=== PATIENT | female | born 1985 | race Caucasian/White ===

== ENCOUNTER 2020-02-17 11:03 | Outpatient (REF) | payer MEDICAID, SELFPAY ==
[2020-02-17 11:32] LABS: COVID-19 Test Negative (Negative)
== END 2020-02-17 11:04 | disposition home or self-care (01) ==
LOC: HO.LAB 11:03
PROVIDERS: Visit Provider Internal Medicine
DX: Z20.828 Contact with and (suspected) exposure to other viral communicable diseases (principal)
CPT/HCPCS: 87635

== ENCOUNTER 2023-05-11 13:46 | Outpatient (REF) | payer MEDICAID, SELFPAY ==
[2023-05-11 16:30] LABS: Alanine Aminotransferase 14 U/L (0-31); Albumin Level 4.2 g/dL (3.5-5.0); Alkaline Phosphatase 100 U/L (39-117); Anion Gap 12 (12-20); Aspartate Amino Transferase 15 U/L (5-31); Bilirubin Total 0.5 mg/dL (0.0-1.0); Blood Urea Nitrogen 11 mg/dL (9-16); Calcium 9.3 mg/dL (8.4-10.2); Carbon Dioxide 27 mmol/L (22-29); Chloride 105 mmol/L (96-108); Estimated Glomerular Filt Rate > 60; Glucose Random 85 mg/dL (60-115); Potassium 3.8 mmol/L (3.3-5.1); Sodium 140 mmol/L (135-145); Total Protein 7.5 g/dL (6.5-8.0)
[2023-05-11 16:46] LABS: TSH reflex Free T4 2.21 uIU/mL (0.32-4.0)
== END 2023-05-11 13:47 | disposition home or self-care (01) ==
LOC: HO.HHCL 13:46
PROVIDERS: Visit Provider General Practice
DX: E03.8 Other specified hypothyroidism (principal)
CPT/HCPCS: 36415; 80053; 84443

== ENCOUNTER 2023-12-08 19:53 | Emergency (ER) | payer MEDICAID, SELFPAY ==
--- NOTE | ~2023-12-08 | XR_ITS ---
EXAMINATION: XR KNEE, LEFT CLINICAL INFORMATION: Pain, injury COMPARISON: None available. TECHNIQUE: Four views of the left knee. FINDINGS: No fracture or joint effusion. Alignment is anatomic. Joint spaces are maintained. No abnormal soft tissue calcification. XR/XR knee LT 3V IMPRESSION: Normal left knee.
--- NOTE | ~2023-12-08 | XR_ITS ---
EXAMINATION: XR HAND/WRIST, RIGHT CLINICAL INFORMATION: Conclusion injury COMPARISON: None TECHNIQUE: PA, lateral, and oblique views of the right hand and wrist. FINDINGS: The bones and soft tissues are normal. No fracture. Alignment is anatomic. Joint spaces are maintained. No erosions or soft tissue calcifications. XR/XR hand wrist RT IMPRESSION: Normal radiographs of the hand and wrist.
--- NOTE | ~2023-12-08 | XR_ITS ---
EXAMINATION: XR HAND/WRIST, LEFT CLINICAL INFORMATION: FOOSH injury COMPARISON: None TECHNIQUE: PA, lateral, and oblique views of the left hand and wrist. FINDINGS: The bones and soft tissues are normal. No fracture. Alignment is anatomic. Joint spaces are maintained. No erosions or soft tissue calcifications. XR/XR hand wrist LT IMPRESSION: Normal radiographs of the hand and wrist.
--- NOTE | ~2023-12-08 | XR_ITS ---
EXAMINATION: XR KNEE, RIGHT CLINICAL INFORMATION: Pain, injury COMPARISON: None available. TECHNIQUE: Four views of the right knee. FINDINGS: No acute fractures. Moderate joint effusion. Alignment is anatomic. Joint spaces are maintained. No abnormal soft tissue calcification. XR/XR knee RT 3V IMPRESSION: Moderate joint effusion.
[2023-12-08 20:12] VITALS: BP 134/84; PULSE 110; RESP 16; TEMP 36.8; O2SAT 98; BMI 30.2
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
== END 2023-12-09 00:11 | disposition left against medical advice (07) ==
PROVIDERS: Emergency Provider Emergency Medicine
DX: S60.512A Abrasion of left hand, initial encounter (principal); S60.511A Abrasion of right hand, initial encounter; S80.212A Abrasion, left knee, initial encounter; S80.211A Abrasion, right knee, initial encounter; V18.0XXA Pedal cycle driver injured in noncollision transport accident in nontraffic accident, initial encounter; M25.461 Effusion, right knee; Z53.21 Procedure and treatment not carried out due to patient leaving prior to being seen by health care provider; Y93.55 Activity, bike riding; Y92.410 Unspecified street and highway as the place of occurrence of the external cause; Y99.9 Unspecified external cause status
CPT/HCPCS: 73110; 73130; 73562; 99281

== ENCOUNTER 2024-01-06 14:03 | Emergency (ER) | payer MEDICAID, SELFPAY ==
[2024-01-06 14:13] VITALS: BP 121/81; PULSE 92; O2SAT 98
--- NOTE | 2024-01-06 15:10 | PC.NURSE ---
NO ANSWER [id number]
== END 2024-01-06 17:26 | disposition left against medical advice (07) ==
PROVIDERS: Emergency Provider Emergency Medicine
DX: M79.605 Pain in left leg (principal)

== ENCOUNTER 2024-01-21 23:25 | Emergency (ER) | payer MEDICAID, SELFPAY ==
[2024-01-21 23:32] VITALS: BP 118/77; PULSE 117; RESP 18; TEMP 36.8; O2SAT 96; BMI 30.6
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
[2024-01-22] MEDS: Lidocaine HCl 1 % MPF 5 ML VIAL INFILTRATI ×2 (01:56)
[2024-01-22 02:04] VITALS: BP 110/73; PULSE 86; RESP 16; TEMP 36.6; O2SAT 98
[2024-01-22 02:06] VITALS: BP 110/73; PULSE 86; RESP 16; TEMP 36.6; O2SAT 98
== END 2024-01-22 02:05 | disposition home or self-care (01) ==
PROVIDERS: Emergency Provider Internal Medicine
DX: S81.811A Laceration without foreign body, right lower leg, initial encounter (principal); M79.604 Pain in right leg; Y29.XXXA Contact with blunt object, undetermined intent, initial encounter; Y93.55 Activity, bike riding; Y92.488 Other paved roadways as the place of occurrence of the external cause; Y99.8 Other external cause status
CPT/HCPCS: 12001; 99284

== ENCOUNTER 2024-02-17 17:10 | Emergency (ER) | payer MEDICAID, SELFPAY ==
[2024-02-17 17:23] VITALS: BP 122/71; PULSE 102; RESP 18; TEMP 37.1; O2SAT 97; BMI 30.7
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
[2024-02-17] MEDS: Docusate Sodium 100 MG/10 ML LIQUID PO (21:38)
[2024-02-17] MEDS: Bacitracin Oint 0.9 GM PACKET 1 APPL TOPICAL (21:42)
[2024-02-17 21:47] VITALS: BP 124/70; PULSE 92; RESP 19; TEMP 36.9; O2SAT 97
[2024-02-17] MEDS: Ibuprofen 400 MG TABLET PO (22:11)
[2024-02-17] MEDS: Ketorolac Tromethamine 30 MG/ML VIAL IM (23:12)
[2024-02-18 00:27] VITALS: BP 119/66; PULSE 79; RESP 16; TEMP 36.7; O2SAT 99
[2024-02-18 00:34] VITALS: BP 119/66; PULSE 79; RESP 16; TEMP 36.7; O2SAT 99
== END 2024-02-18 00:37 | disposition home or self-care (01) ==
PROVIDERS: Emergency Provider Emergency Medicine
DX: H61.21 Impacted cerumen, right ear (principal); H92.01 Otalgia, right ear
CPT/HCPCS: 69209; 99283; 99284; J1885

== ENCOUNTER 2024-06-09 17:52 | Outpatient (REF) | payer MEDICAID, SELFPAY ==
--- OUTSIDE RECORDS SUMMARY | 2024-06-09 17:55 | XMS_ITS | Encounter Summary ---
Author Organization [employer] Address [address] [place] [address] Care Team Providers Care Project Management Professor Name Role Phone Tayler Byers MD Primary Care Provider [phone] Reason for Visit * Reason Comments Med Refill Encounter Details Date Type Department Care Team ([facility] st Contact Info) Description 05/15/2024 Refill [facility] [address] [place], [place] [phone] Tayler Byers MD [address] [place], [place] [phone] Social History Tobacco Use Types Packs/Day Years Used Date Smoking Tobacco: Never Smokeless Tobacco: Current Comments:vape Alcohol Use Standard Drinks/Week Comments Never 0 (1 standard drink = 0.6 oz pur e alcohol) Depression Answer Date Recorded Patient Health Questionnaire-9 Score 0 04/24/2024 Patient Health Questionnaire-9 Score 0 04/24/2024 Last PHQ-9: Questionnaire Data Not on file 1 06/25/2023 Housing Stability Answer Date Recorded What is your housing situation today? I have mason velasco 04/24/[address] you li ve. Do you have problems with any of the following? None of the above 04/24/2024 Food Insecurity Answer Date Recorded Within the past 12 months, y ou worried that your food would run out before you got money to buy more: Never True 04/24/2024 Within the past 12 months,th e food you bought just didn't last and you didn't have enough money to get more: Never True Transportation Answer Date Recorded In the past 12 months, has l ack of transportation kept you from medical appts, meetings, work or from getting things needed for daily living? No 04/24/2024 Utilities Answer Date Recorded In the past 12 months, has t he electric, gas, oil or water company threatened to shut off services in your home? No 04/24/2024 Depression Answer Date Recorded Patient Health Questionnaire-2 Score 0 04/24/2024 Internet Access Answer Date Recorded Internet Access Q1 Yes 04/24/2024 Internet Access Q2 Not on file 04/24/2024 Comments Unknown Sex and Gender Information Value Date Recorded Sex Assigned at Female 03/06/2022 10:34 AM EDT Legal Sex Female 10:34 AM EDT Gender Identity Female 03/06/2022 10:34 AM EDT Sexual Orientation Bisexual 03/06/2022 10 :34 AM EDT documented as of this encounter Plan of Treatment Not on file documented as of this encounter Visit Diagnoses Not on filedocumented in this encounter Additional Health Concerns Assessment Noted Time PHQ-9 Depression Total Score: 0 04/24/20 24 12:05 PM EST documented as of this encounter Care Teams Project Management Professor Relationship Specialty Start Date End Date Tayler Byers MD [address] [place] [address] PCP - General Family Medicine 03/19/20 documented as of this encounter
--- OUTSIDE RECORDS SUMMARY | 2024-06-09 17:55 | XMS_ITS | Encounter Summary ---
Author Organization [employer] [facility] Address [address] [place] [address] [address] [place] [address] Care Team Providers Care Printing Plate Clerk Name Role Phone Tayler Byers MD Primary Care Provider [phone] Encounter Details Date Type Department Care Team (Late st Contact Info) Description 03/22/2022 Abstract [facility] [address] [place] [address] Provider, MD Dagmar Social History Tobacco Use Types Packs/Day Years Used Date Smoking Tobacco: Never Assessed Comments Unknown Sex and Gender Information Value Date Recorded Sex Assigned at Female 03/06/2022 10:34 AM EDT Legal Sex Female 10:34 AM EDT Gender Identity Female 03/06/2022 10:34 AM EDT Sexual Orientation Bisexual 03/06/2022 10 :34 AM EDT documented as of this encounter Plan of Treatment Not on file documented as of this encounter Visit Diagnoses Not on filedocumented in this encounter Care Teams Printing Plate Clerk Relationship Specialty Start Date End Date Tayler Byers MD [address] [place] [address] PCP - General Family Medicine 03/19/20 documented as of this encounter
--- OUTSIDE RECORDS SUMMARY | 2024-06-09 17:55 | XMS_ITS | Encounter Summary ---
Author Organization [employer] Address [address] [place] [address] Care Team Providers Care Boat Cleaner Name Role Phone Tayler Byers MD Primary Care Provider Reason for Visit * Reason Comments Recovery Supports Encounter Details Date Type Department Care Team ([facility] st Contact Info) Description 05/20/2024 Patient Outreach [facility] [address] [place] [address] Ck Alaniz Recovery Supports Social History Tobacco Use Types Packs/Day Years [...] AM EDT documented as of this encounter Progress Notes * Ck Alaniz - 05/20/2024 1:25 PM EST I met with Liliam today. Setting: by phone Recovery Wellness Goals worked on: Personal/Professional Development (Education/Employment) and Social Stability Action taken/next steps: Enrolled in educational courses, Offered person centered recovery support, and Assisted with accessing benefits (insurance, SNAP, etc.) Additional comments: Liliam asked me if I could assist her with the application for financial assistance to pay for the recovery academy training. Ck Alaniz documented in this encounter Plan of Treatment Not on file documented as of this encounter Visit Diagnoses Not on filedocumented in this encounter Additional Health Concerns Assessment Noted Time PHQ-9 Depression Total Score: 0 04/24/20 24 12:05 PM EST documented as of this encounter Care Teams Boat Cleaner Relationship Specialty Start Date End Date Tayler Byers MD [address] [place] [id number] PCP - General Family Medicine 03/19/20 documented as of this encounter
--- OUTSIDE RECORDS SUMMARY | 2024-06-09 17:55 | XMS_ITS | Clinical Summary ---
Author Organization [employer] Address [address] [place] [address] Care Team Providers Care Service Line Layer Name Role Phone Tayler Byers MD Primary Care Provider [phone] Allergies No known active allergies Medications * This document contains information received from the source organization and may not represent a complete record from that organization. fluticasone (Flonase) 50 MCG/ACT nasal spray ADMINISTER 2 SPRAYS INTO EACH NOSTRIL ONCE PER DAY. SHAKE GENTLY. BEFORE FIRST USE, PRIME PUMP. AFTER USE, CLEAN TIP AND REPLACE CAP 48 mL 04/24/20 24 Active Ascorbic Acid (vitamin C) 250 MG tabletIndicatio ns:Acne vulgaris Take 1 tablet (250 mg) by mouth Once per day. 90 tablet 3 06/09/19 25 026 Active QUEtiapine (SEROquel) 100 MG tabletIndicatio ns:Bipolar I disorder (CMS/HCC) TAKE 1 TABLET BY MOUTH IN THE MORNING, AND TAKE 2 TABLETS BY MOUTH AT BEDTIME 270 tablet 3 06/09/19 25 Active lidocaine (Lidoderm) 5 % patchIndication s:Low back pain at multiple sites Apply 1 patch topically Once per day. Remove & discard patch within 12 hours or as directed by MD. 30 patch 2 06/09/19 25 026 Active cetirizine (ZyrTEC) 10 MG tabletIndicatio ns:Allergic rhinitis due to other allergic trigger, unspecified seasonality Take 1 tablet (10 mg) by mouth Once per day. 90 tablet 3 06/09/19 25 026 Active spironolactone (Aldactone) 100 MG tabletIndicatio ns:Acne vulgaris Take 1 tablet (100 mg) by mouth Once per day. 90 tablet 3 06/09/19 25 026 Active busPIRone (Buspar) 15 MG tabletIndicatio ns:Bipolar I disorder (CMS/HCC) Take 1 tablet (15 mg) by mouth every 8 (eight) hours. 270 tablet 3 06/09/19 25 Active ondansetron (Zofran) 4 MG tablet Take 1 tablet (4 mg) by mouth if needed each day for nausea or vomiting. 20 tablet 06/09/19 25 026 Active ibuprofen 400 MG tabletIndicatio ns:Low back pain at multiple sites Take 1 tablet (400 mg) by mouth every 6 (six) hours if needed for moderate pain or fever for up to 90 doses. 90 tablet 06/09/19 25 Active acetaminophen (Tylenol) 500 MG tabletIndicatio ns:Low back pain at multiple sites Take 1 tablet (500 mg) by mouth every 6 (six) hours if needed for moderate pain. 40 tablet 1 06/09/19 25 Active buPROPion (Wellbutrin) 75 MG tabletIndicatio ns:Bipolar I disorder (CMS/HCC) Take 1 tablet (75 mg) by mouth 2 times daily. 180 tablet 3 06/09/19 25 Active clindamycin (Clindagel) 1 % gelIndications: Acne vulgaris Apply topically Once per day. After washing face with noxema 60 g 2 06/09/19 25 026 Active lamoTRIgine (LaMICtal) 200 MG tabletIndicatio ns:Bipolar I disorder (CMS/HCC) Take 1 tablet (200 mg) by mouth in the morning. 90 tablet 3 06/09/19 25 Active tretinoin (Retin-A) 0.025 % creamIndication s:Acne vulgaris Apply topically at bedtime. 45 g 2 06/09/19 25 026 Active busPIRone (Buspar) 15 MG tablet Take 1 tablet (15 mg) by mouth every 8 (eight) hours. 270 tablet 3 05/11/19 24 025 Discontinued QUEtiapine (SEROquel) 100 MG tablet TAKE 1 TABLET BY MOUTH IN THE MORNING, AND TAKE 2 TABLETS BY MOUTH AT BEDTIME 270 tablet 3 05/11/19 24 025 Discontinued lamoTRIgine (LaMICtal) 200 MG tablet Take 1 tablet (200 mg) by mouth in the morning. 90 tablet 3 05/11/19 24 025 Discontinued buPROPion (Wellbutrin) 75 MG tablet Take 1 tablet (75 mg) by mouth 2 times daily. 180 tablet 3 05/11/19 24 025 Discontinued clindamycin (Clindagel) 1 % gel Apply topically in the morning. After washing face with noxema 60 g 2 06/06/19 24 025 Discontinued(R eorder (will not trigger notification to Pharmacy)) tretinoin (Retin-A) 0.025 % creamIndication s:Acne vulgaris Apply topically at bedtime. 45 g 2 06/29/19 025 Discontinued(R eorder (will not trigger notification to Pharmacy)) spironolactone (Aldactone) 100 MG tabletIndicatio ns:Acne vulgaris Take 1 tablet (100 mg) by mouth in the morning. 30 tablet 11 06/29/19 025 Discontinued(R eorder (will not trigger notification to Pharmacy)) ondansetron (Zofran) 4 MG tablet Take 1 tablet (4 mg) by mouth if needed each day for nausea or vomiting. 20 tablet 07/24/19 025 Discontinued(R eorder (will not trigger notification to Pharmacy)) ibuprofen 400 MG tablet Take 1 tablet (400 mg) by mouth every 6 (six) hours if needed for moderate pain or fever for up to 30 doses. 30 tablet 10/11/19 025 Discontinued(R eorder (will not trigger notification to Pharmacy)) lidocaine (Lidoderm) 5 % patch Apply 1 patch topically Once per day. Remove & discard patch within 12 hours or as directed by MD. 30 patch 2 10/11/19 025 Discontinued(R eorder (will not trigger notification to Pharmacy)) acetaminophen (Tylenol) 500 MG tablet Take 1 tablet (500 mg) by mouth every 6 (six) hours if needed for moderate pain. 40 tablet 1 10/11/19 025 Discontinued(R eorder (will not trigger notification to Pharmacy)) cetirizine (ZyrTEC) 10 MG tablet Take 1 tablet (10 mg) by mouth Once per day. 30 tablet 11 10/29/19 24 025 Discontinued(R eorder (will not trigger notification to Pharmacy)) silver sulfADIAZINE (Silvadene) 1 % cream Apply to affected area daily 20 g 12/10/19 24 025 Discontinued(T herapy completed) bacitracin-poly myxin b (Polysporin) ointment Apply topically 2 times daily. 15 g 12/10/19 24 025 Discontinued(T herapy completed) QUEtiapine (SEROquel) 100 MG tablet TAKE 1 TABLET BY MOUTH IN THE MORNING, AND TAKE 2 TABLETS BY MOUTH AT BEDTIME 270 tablet 3 05/15/19 25 025 Discontinued(R eorder (will not trigger notification to Pharmacy)) lamoTRIgine (LaMICtal) 200 MG tablet TAKE 1 TABLET BY MOUTH IN THE MORNING 90 tablet 3 05/15/19 25 025 Discontinued(R eorder (will not trigger notification to Pharmacy)) buPROPion (Wellbutrin) 75 MG tablet TAKE 1 TABLET BY MOUTH TWICE A DAY 180 tablet 3 05/19/19 25 025 Discontinued(R eorder (will not trigger notification to Pharmacy)) busPIRone (Buspar) 15 MG tablet TAKE 1 TABLET (15 MG) BY MOUTH EVERY 8 (EIGHT) HOURS. 270 tablet 3 05/19/19 25 025 Discontinued(R eorder (will not trigger notification to Pharmacy)) Active Problems Problem Noted Date Diagnosed Date Subclinical hypothyroidism 05/11/2023 Encounter for screening mamm ogram for malignant neoplasm of breast 05/11/2023 Low back pain at multiple sites 05/11/2023 Moderate anxiety 04/23/2023 Opioid use, unspecified, uncomplicated 3 Acne 03/22/2022 Assessment & Plan (06/06/2023 11:48 AM EST): Paradoxical worsening of acne with Anaid Continue Noxema wash, add clinda gel Will consult derm for consideration of Accutane Assessment & Plan (05/11/2023 1:55 PM EST): Trial Anaid, if this is not sufficient, consider accutane Bipolar I disorder 04/21/2020 Assessment & Plan (05/11/2023 1:56 PM EST): Stable on meds Cannabis abuse 04/21/2020 Mild depressive disorder 10/24/2011 Assessment & Plan (04/23/2023 9:50 AM EST): PROGRESS NOTE: ID: Liliam is a 38 y.o. White bisexual-identified cis-female (pronouns ) with previous documented hx of Depression self reported history of Anxiety who presents for Anxiety and Depression after been released from skilled nursing 1 week ago since 2008. Adjusting to the community. During IBH Consult Liliam presenting with changes in sleep difficulty falling asleep, trouble concentrating, thoughts of worthlessness or guilt, fatigue/loss of energy, excessive worry/anxiety, difficulty controlling worry, restless/keyed up/On edge, easily fatigued, sleep disturbance difficulty falling asleep, and diminished ability to relax, and Hx of opioid abuse, currently has been in treatment at skilled nursing since 2008, denies cravings, denies any other illicit drugs, will start services at [facility] for suboxone, in regard to Opioids; for a period of 18+ mo, for all symptoms in the context of recently released from skilled nursing recently, currently on parole and probation, needing anger management classes, provided with Kyle brochure for her to follow up and request information. PLAN: New/Additional Services needed Off-site services for , Behavioral Health Integration Plan External OP therapy referral and OP psychiatry Referral, Patient Self Plan Patient to utilize skills provided in intervention , Patient to reach out to [facility] team as needed, and Comply with medication prescribed by skilled nursing provider ( buspar 15mg, lamitical 20mg, seroquel 100mg and welbutrin 75mg). Encounters Date Type Department Care Team Description 06/09/2024 3:45 PM EST Procedure Visit [facility] [address] [place] [address] Tayler Byers MD Screening for cervical cancer (Primary Dx); Encounter for screening mammogram for malignant neoplasm of breast; Blurry vision, bilateral; Acne vulgaris; Dietary counseling; Exercise counseling; Class 1 obesity with body mass index (BMI) of 31.0 to 31.9 in adult, unspecified obesity type, unspecified whether serious comorbidity present; Bipolar I disorder ([facility]); Low back pain at multiple sites; Allergic rhinitis due to other allergic trigger, unspecified seasonality 06/09/2024 Refill [facility] [address] [place] [address] Tayler Byers MD Acne vulgaris 06/09/2024 Travel 05/30/2024 Patient Outreach [facility] [address] [facility] [place] [address] [facility] 05/20/2024 Patient Outreach [facility] [address] [facility] [place] [address] [facility] 05/19/2024 Patient Outreach [facility] [address] [facility] [address] [place] [address] [facility] 05/18/2024 Refill [facility] [address] [facility] [place] [address] Tayler Byers MD 05/15/2024 Refill [facility] [address] [facility] [address] [place] [address] Tayler Byers MD 05/08/2024 Telephone [facility] [address] [facility] [place] [address] Tayler Byers MD Medication Question 04/24/2024 11:45 AM EST Office Visit [facility] [address] [facility] [address] [place] [address] Kimberly Begum DO Decreased visual acuity (Primary Dx) 04/24/2024 Patient Outreach [facility] [address] [facility] [address] [place] [address] [facility] 04/24/2024 Refill [facility] [address] [facility] [place] [address] Tayler Byers MD 04/23/2024 Patient Outreach [facility] [address] [place] [address] [facility] 04/15/2024 Telephone [facility] [address] [place] [address] Tayler Byers MD Nurse Triage from Last 3 Months Immunizations Name Administration Dates Next Due Hep A, Adult 05/29/2022,02/25/2021 TD (adult), 2 Lf tetanus tox oid, preservative free, adsorbed 10/13/2017 Social History Tobacco Use Types Packs/Day Years Used Date Smoking Tobacco: Never Smokeless Tobacco: Current Tobacco Cessation:Ready to Q uit: Not Asked; Counseling Given: Not Answered Comments:vape Alcohol Use Standard Drinks/Week Comments Never 0 (1 standard drink = 0.6 oz pur e alcohol) Depression Answer Date Recorded Patient Health Questionnaire-9 Score 0 04/24/2024 Patient Health Questionnaire-9 Score 0 04/24/2024 Last PHQ-9: Questionnaire Data Not on file 1 06/25/2023 Housing Stability Answer Date Recorded What is your housing situation today? I have mason rod 04/24/[address] you li [...] Orientation Bisexual 03/06/2022 10 :34 AM EDT Last Filed Vital Signs Vital Sign Reading Time Taken Comments Blood Pressure 120/60 06/09/2024 4:02 PM EST Pulse 92 06/09/2024 4:02 PM EST Temperature 36.1 ??C (97 ??F) 06/09/2024 4:02 PM EST Respiratory Rate 18 06/09/2024 4:02 PM EST Oxygen Saturation 99% 12/10/2023 2:27 PM EDT Inhaled Oxygen Concentration - - Weight 77.8 kg (171 lb 9.6 oz) 06/09/2024 4:02 P M EST Height 154.9 cm (5' 1 ) 06/09/2024 4:02 PM EST Body Mass Index 32.42 06/09/2024 4:02 PM EST Plan of Treatment Health Maintenance Due Date Last Done Comments Family Planning (PISQ) 1998 Hepatitis B Vaccines (1 of 3 - 19+ 3-dose series) 2002 DTaP/Tdap/Td Vaccines (1 - Tdap) 10/14/2017 10/13/2017 Mammogram 2023 COVID-19 Vaccine (1 - 2023-2 5 season) 2024 Influenza Vaccine (#1) 2024 Pap Smear 08/05/2024 08/05/2021 Alcohol/Substance Use Screening 04/24/2025 04/24/2024 Depression Screening 04/24/2025 04/24/2024, 04/24/2024 SDOH Screening 04/24/2025 04/24/2024 Tobacco Screening 04/24/2025 04/24/2024 Lipid Panel 07/08/2026 07/08/2021 Cervical Cancer Screening 08/05/2026 HPV/Cotest 08/05/2026 08/05/2021 Zoster Vaccines (1 of 2) 2033 RSV Patients and Patients Aged 60 years or older (1 - 1-dose 75+ series) 2058 HIV Screening Completed 07/08/2021 Hepatitis C Screening Completed 07/08/2021 Hepatitis A Vaccines Completed 05/29/2022, 02/25/2021 HIB Vaccines Aged Out No longer eligi ble based on patient's age to complete this topic HPV Vaccines Aged Out No longer eligi ble based on patient's age to complete this topic IPV Vaccines Aged Out No longer eligi ble based on patient's age to complete this topic Meningococcal Vaccine Aged Out No imani nicki eligible based on patient's age to complete this topic Pneumococcal Vaccine: Pediatrics (0 to 5 Years) and At-Risk Patients (6 to 49) Years) Aged Out No longer eligible b ased on patient's age to complete this topic RSV under 20 months Aged Out No longe r eligible based on patient's age to complete this topic Rotavirus Vaccines Aged Out No longer eligible based on patient's age to complete this topic Procedures Procedure Name Priority Date/Time Associated Diagnosis Comments HPV MRNA E6/E7 REFLEX TO HPV 16, 18/45 Routine 08/05/2021 12:00 AM EDT [facility] PAP Routine 08/05/2021 12:00 AM EDT ZZZ HISTORICAL HEPATITIS C AB W/REFL TO HCV RNA, QN, PCR Routine 07/08/2021 11:21 AM EST HIV 1/2 ANTIGEN/ANTIBODY, FOURTH GENERATION W/RFL Routine 07/08/2021 11:21 AM EST LIPID PANEL, STANDARD Routine 07/08/2021 11:21 AM EST from Last 3 Months or Most Recently Relevant to Health Maintenance Results * (ABNORMAL) [facility]INPREP TIS PAP (08/05/2021 12:00 AM EDT) Clinical Information: None given [facility] COMMENT SEE COMMENT [facility] Comment: EXPLANATORY NOTE: ? The Pap is a screening test for cervical cancer. It is ?? not a diagnostic test and is subject to false negative ?? and false positive results. It is most reliable when a ?? satisfactory sample, regularly obtained, is submitted ?? with relevant clinical findings and history, and when ?? the Pap result is evaluated along with historic and ?? current clinical information. ?? COMMENT: This Pap test has been evaluated with computer assisted technology. [facility] Waterproof Coating Machine Tender : SEE COMMENT [facility] Comment: DMM, CT(ASCP) CT screening location: [address] ??[id number] General Categorization: EPITHELIAL CELL ABNORMALITY(A) [facility] Interpretation/R esult: Atypical Squamous Cells of Undetermined Significance (ASC-US)(A) [facility] LMP: NONE GIVEN [facility] PATHOLOGIST: SEE COMMENT [facility] Comment: Philip Thompson M.D., Board Certified in Anatomic and Clinical Pathology (electronic signature) Consulting Pathologist [facility] [address] [place] [address] ??[id number] Prev. BX: NONE GIVEN [facility] Prev. PAP: NONE GIVEN [facility] SOURCE: None given [facility] Statement Of Adequacy: SEE COMMENT [facility] Comment: Satisfactory for evaluation. Endocervical/transformation zone component present. Age and/or menstrual status not provided 08/05/2021 Result [facility] Tayler Byers MD LAB PATHOLOGY ORDERABLES Final Result Performing Organization Address [facility] de Phone Number [facility] [address] * HPV mRNA E6/E7 REFLEX TO HPV 16, 18/45 (08/05/2021 12:00 AM EDT) HPV nRNA E6/E7 Not Detected Not Detected [facility] Comment: Methodology: Clinical Exercise Physiologist-Mediated Amplification This assay detects E6/E7 viral messenger RNA (mRNA) from 14 high-risk HPV types (16,18,31,33,35,39,45,51,52,56,58,59,66,68). ? The analytical performance characteristics of this assay have been determined by [employer]. The modifications have not been cleared or approved by the FDA. This assay has been validated pursuant to the CLIA regulations and is used for clinical purposes. ?? For additional information, please refer to http://education.[employer]/faq/MKS979m0 (This link if provided for information/ educational purposes only.) 08/05/2021 Tayler Byers MD LAB CYTOLOGY ORDERABLES Final Result Performing Organization Address [facility]/ZIP Co de Phone Number [facility] [address] [place] [address], * HEPATITIS C AB W/REFL TO HCV RNA, QN, PCR (07/08/2021 11:21 AM EST) HEPATITIS C ANTIBODY NON-REACT ELISA NON-REACT ELISA [facility] INDEX 0.02 <1.00 [facility] Comment: ?? HCV antibody was non-reactive. There is no laboratory ?? evidence of HCV infection. ?? In most cases, no further action is required. However, if recent HCV exposure is suspected, a test for HCV RNA (test code 33433) is suggested. ?? For additional information please refer to http://[employer]/faq/NQV91s7 (This link is being provided for informational/ educational purposes only.) ?? 07/08/2021 11:2 1 AM EST Tayler Byers MD HISTORICAL/NON ORDERABLE LABS Final Result Performing Organization Address City/State/[facility] Co de Phone Number [facility] [address] * HIV 1/2 ANTIGEN/ANTIBODY,FOURTH GENERATION W/RFL (07/08/2021 11:21 AM EST) Pathologist [facility] HIV-1/2 ANTIGEN AND ANTIBODIES, 4TH GENERATION W/ REFLEX NON-REACT ELISA NON-REACT ELISA [facility] Comment: HIV-1 antigen and HIV-1/HIV-2 antibodies were not detected. There is no laboratory evidence of HIV infection. ?? PLEASE NOTE: This information has been disclosed to you from records whose confidentiality may be protected by state law. ??If your state requires such protection, then the state law prohibits you from making any further disclosure of the information without the specific written consent of the person to whom it pertains, or as otherwise permitted by law. A general authorization for the release of medical or other information is NOT sufficient for this purpose. ? For additional information please refer to http://[employer]/faq/JPD355 (This link is being provided for informational/ educational purposes only.) ? The performance of this assay has not been clinically validated in patients less than 2 years old. ?? 07/08/2021 11:2 1 AM EST us Tayler Byers MD LAB BLOOD ORDERABLES Final Res ult Performing Organization Address [facility] Co de Phone Number [facility] [address] [place] [address], * LIPID PANEL, STANDARD (07/08/2021 11:21 AM EST) Chol/HDLC Ratio 2.9 <5.0 (calc) [facility] Cholesterol, Total 158 <200 mg/dL [facility] HDL Cholesterol 55 > OR = 50 mg/dL [facility] LDL Cholesterol 80 mg/dL (calc) [facility] Comment: Reference range: <100 ?? Desirable range <100 mg/dL for primary prevention; ?? <70 mg/dL for patients with CHD or diabetic patients ?? with > or = 2 CHD risk factors. ?? LDL-C is now calculated using the Rommel-Escobar ?? calculation, which is a validated novel method providing ?? better accuracy than the Friedewald equation in the ?? estimation of LDL-C. ?? Rommel CARBALLO et al. HARVINDER. 2013;310(19): 6821-6886 ?? (http://education.[employer]/faq/GIQ103) Non-HDL Cholesterol 103 <130 mg/dL (calc) [facility] Comment: For patients with diabetes plus 1 major ASCVD risk ?? factor, treating to a non-HDL-C goal of <100 mg/dL ?? (LDL-C of <70 mg/dL) is considered a therapeutic ?? option. Triglycerides 131 <150 mg/dL [facility] 07/08/2021 11:2 1 AM EST us Tayler Byers MD LAB BLOOD ORDERABLES Final Res ult Performing Organization Address [facility]/ZIP Co de Phone Number [facility] [address] from Last 3 Months or Most Recently Relevant to Health Maintenance Insurance * Guarantor: Liliam Colon Account Type Relation to Patient Date of Phone Billing Address Personal/Family Self [address] [place] Care Teams Service Line Layer Relationship Specialty Start Date End Date Tayler Byers MD [address] [place] [address] [place] [address] PCP - General Family Medicine 03/19/20
--- OUTSIDE RECORDS SUMMARY | 2024-06-09 17:55 | XMS_ITS | Encounter Summary ---
Author Organization [facility] [facility] Address [address] [place] [address] 7 [place] [address] Care Team Providers Care Powerhouse Mechanic Apprentice Name Role Phone Tayler Byers MD Primary Care Provider [phone] Reason for Referral * Consultation (Routine) - Authorized Specialty Diagnoses / Procedures Referred By Carlota douglass Referred To Contact Optometry Diagnoses Blurry vision, bilateral Tayler Byers MD [address] [place] [address] Phone: tel: fax: Referral ID Status Reason Start Date Expiration Date Visits Requested Visits Authorized [id number] Authorized Specialty Services Required 06/09/2024 06/09/2025 1 1 * Imaging (Routine) - Pending Review Specialty Diagnoses / Procedures Referred By Carlota douglass Referred To Contact Radiology Diagnoses Encounter for screening mammogram for malignant neoplasm of breast Procedures BI Mammogram Screening Tomosynthesis Bilateral Tayler Byers MD [address] [place] [address] Phone: tel: fax: Referral ID Status Reason Start Date Expiration Date V isits Requested Visits Authorized [id number] Pending Review 06/09/2024 06/09/2025 1 1 Encounter Details Date Type Department Care Team (Latest Contact Info) Description 06/09/2024 3:45 PM EST Procedure Visit [facility] [address] [place] [address] Tayler Byers MD [address] [place] [address] Screening for cervical cancer (Primary Dx); Encounter for screening mammogram for malignant neoplasm of breast; Blurry vision, bilateral; Acne vulgaris; Dietary counseling; Exercise counseling; Class 1 obesity with body mass index (BMI) of 31.0 to 31.9 in adult, unspecified obesity type, unspecified whether serious comorbidity present; Bipolar I disorder (CMS/HCC); Low back pain at multiple sites; Allergic rhinitis due to other allergic trigger, unspecified seasonality Social History Tobacco Use Types Packs/Day Years [...] AM EDT documented as of this encounter Last Filed Vital Signs Vital Sign Reading Time Taken Comments Blood Pressure 120/60 06/09/2024 4:02 PM EST Pulse 92 06/09/2024 4:02 PM EST Temperature 36.1 ??C (97 ??F) 06/09/2024 4:02 PM EST Respiratory Rate 18 06/09/2024 4:02 PM EST Oxygen Saturation - - Inhaled Oxygen Concentration - - Weight 77.8 kg (171 lb 9.6 oz) 06/09/2024 4:02 P M EST Height 154.9 cm (5' 1 ) 06/09/2024 4:02 PM EST Body Mass Index 32.42 06/09/2024 4:02 PM EST documented in this encounter Progress Notes * Tayler Byers MD - 06/09/2024 3:45 PM EST SUBJECTIVE: Liliam Colon is a 39 y.o. year old female who presents for pap . Denies recent illness, ER visit, or hospitalization. Acute Concerns: Previous Pap: - : 5. Parity: Term: 2. Pre-Term: 1. : 2. Livin. - Contraception: - Breast symptoms: Denies any breast discharge, breast lump(s) and breast pain. - Postmenopausal: Age: 47, Type: natural. Negative for Hormone replacement therapy. - Menopausal symptoms: - Sexual activity: - Safety concerns: - Vaginal symptoms: denies any dyspareunia, vaginal discharge and vaginal itching - Denies urinary symptoms Interim Updates: Patient Active Problem List Diagnosis Acne Bipolar I disorder ([facility]) Cannabis abuse Mild depressive disorder Moderate anxiety Opioid use, unspecified, uncomplicated Subclinical hypothyroidism Encounter for screening mammogram for malignant neoplasm of breast Low back pain at multiple sites No past surgical history on file. No family history on file. Social History Social History Narrative Not on file Review of Systems OBJECTIVE: There were no vitals filed for this visit. Physical Exam ASSESSMENT/PLAN Problem List Items Addressed This Visit None Follow Up: 6 months or sooner prn No Known Allergies Current Outpatient Medications: acetaminophen (Tylenol) 500 MG tablet, Take 1 tablet (500 mg) by mouth every 6 (six) hours if needed for moderate pain., Disp: 40 tablet, Rfl: 1 bacitracin-polymyxin b (Polysporin) ointment, Apply topically 2 times daily., Disp: 15 g, Rfl: 0 buPROPion (Wellbutrin) 75 MG tablet, TAKE 1 TABLET BY MOUTH TWICE A DAY, Disp: 180 tablet, Rfl: 3 busPIRone (Buspar) 15 MG tablet, TAKE 1 TABLET (15 MG) BY MOUTH EVERY 8 (EIGHT) HOURS., Disp: 270 tablet, Rfl: 3 cetirizine (ZyrTEC) 10 MG tablet, Take 1 tablet (10 mg) by mouth Once per day., Disp: 30 tablet, Rfl: 11 fluticasone (Flonase) 50 MCG/ACT nasal spray, ADMINISTER 2 SPRAYS INTO EACH NOSTRIL ONCE PER DAY. SHAKE GENTLY. BEFORE FIRST USE, PRIME PUMP. AFTER USE, CLEAN TIP AND REPLACE CAP, Disp: 48 mL, Rfl: 0 ibuprofen 400 MG tablet, Take 1 tablet (400 mg) by mouth every 6 (six) hours if needed for moderatepain or fever for up to 30 doses., Disp: 30 tablet, Rfl: 0 lamoTRIgine (LaMICtal) 200 MG tablet, TAKE 1 TABLET BY MOUTH IN THE MORNING, Disp: 90 tablet, Rfl: 3 lidocaine (Lidoderm) 5 % patch, Apply 1 patch topically Once per day. Remove & discard patch within 12 hours or as directed by MD., Disp: 30 patch, Rfl: 2 ondansetron (Zofran) 4 MG tablet, Take 1 tablet (4 mg) by mouth if needed each day for nausea or vomiting., Disp: 20 tablet, Rfl: 0 QUEtiapine (SEROquel) 100 MG tablet, TAKE 1 TABLET BY MOUTH IN THE MORNING, AND TAKE 2 TABLETS BY MOUTH AT BEDTIME, Disp: 270 tablet, Rfl: 3 silver sulfADIAZINE (Silvadene) 1 % cream, Apply to affected area daily, Disp: 20 g, Rfl: 0 spironolactone (Aldactone) 100 MG tablet, Take 1 tablet (100 mg) by mouth in the morning., Disp: 30tablet, Rfl: 11 tretinoin (Retin-A) 0.025 % cream, Apply topically at bedtime., Disp: 45 g, Rfl: 2 Yi Translation: Patient is bilingual and declines translation services documented in this encounter Plan of Treatment Scheduled Orders Name Type Priority Associated Diagnoses Order Schedule ThinPrep Imaging Pap and HPV mRNA E6/E7 with Reflex to HPV 16,18/45 Pathology and Cytology Routine Screening for cervical cancer Expected: 06/09/2024 (Approximate), Expires: 06/09/2025 Bacterial Vaginosis Microbiology Routine Screening for cervical cancer Ordered: 06/09/2024 BI Mammogram Screening Tomosynthesis Bilateral Imaging Routine Encounter for screening mammogram for malignant neoplasm of breast Expected: 06/09/2024, Expires: 08/07/2025 Scheduled Referrals Name Type Priority Associated Diagnoses Orde r Schedule Referral to Optometry, Internal Outpatient Referral Routine Blurry vision, bilateral Expected: 06/09/2024 (Approximate), Expires: 06/09/2025 documented as of this encounter Visit Diagnoses Diagnosis Screening for cervical cancer- Primary Screening for malignant neoplasm of the cervix Encounter for screening mammogram for malignant neoplasm of breast Blurry vision, bilateral Other specified visual disturbances Acne vulgaris Other acne Dietary counseling Dietary surveillance and counseling Exercise counseling Class 1 obesity with body mass index (BMI) of 31.0 to 31.9 in adult, unspecified obesity type, unspecified whether serious comorbidity present Bipolar I disorder ([facility]) Bipolar I disorder, most recent episode (or current) unspecified Low back pain at multiple sites Allergic rhinitis due to other allergic trigger, unspecified seasonality documented in this encounter Additional Health Concerns Assessment Noted Time PHQ-9 Depression Total Score: 0 04/24/20 24 12:05 PM EST documented as of this encounter Care Teams Powerhouse Mechanic Apprentice Relationship Specialty Start Date End Date Tayler Byers MD [address] [place] [address] PCP - General Family Medicine 03/19/20 documented as of this encounter
--- OUTSIDE RECORDS SUMMARY | 2024-06-09 17:55 | XMS_ITS | Encounter Summary ---
Author Organization [employer] Address [address] 7[address] [place] [address] Care Team Providers Care Billing Adjudicator Name Role Phone Tayler Byers MD Primary Care Provider [phone] Reason for Visit * Reason Onset Date Comments Nurse Triage 04/15/2024 Encounter Details Date Type Department Care Team ([facility] st Contact Info) Description 04/15/2024 Telephone [facility] [address] [place], [place] [phone] Tayler Byers MD [address] [place] [address] Nurse Triage Social History Tobacco Use Types Packs/Day Years [...] AM EDT documented as of this encounter Miscellaneous Notes * Telephone Encounter - Malinda Brooks RN - 04/15/2024 11:25 AM EST Triage call Pt reports vision changes/loss over the past months. Pt reports blurry vision after close up work or looking at something for a prolong period of time. Pt hasn't had eye exam for a while and doesn't wear glasses. Pt is concerned that his could be side effect of medication but, doesn't have specific Med in mind. ASK apt with Dr. Begum 04/24/24 @ 1145am. Insurance is verified as active prior to booking. Protocol Used: Vision Loss or Change (Adult) Protocol-Based Disposition: See in Office or Video Visit within 2 Weeks Video visit not offered Positive Triage Question: * Blurred vision or visual changes and gradual onset (e.g., weeks, months) * All higher-acuity triage questions were negative Care Advice Discussed: * Reassurance and Education - Brief Blurred Vision From Eyestrain * Rest Your Eyes * Get an Eye Exam * Reasons To Call Back - Blurred vision occurs at other times - You become worse * Telephone Encounter - Dayna Scott - 04/15/2024 10:54 AM EST Symptom: Vision Loss or Change Outcome: Schedule an urgent appointment (within 1 hour) or talk to a nurse or provider soon Reason: Getting worse The caller accepted this outcome. Please contact at [phone] documented in this encounter Plan of Treatment Not on file documented as of this encounter Visit Diagnoses Not on filedocumented in this encounter Additional Health Concerns Assessment Noted Time PHQ-9 Depression Total Score: 9 04/23/20 23 9:17 AM EST documented as of this encounter Care Teams Billing Adjudicator Relationship Specialty Start Date End Date Tayler Byers MD [address] [place] [address] PCP - General Family Medicine 03/19/20 documented as of this encounter
--- OUTSIDE RECORDS SUMMARY | 2024-06-09 17:55 | XMS_ITS | Encounter Summary ---
Author Organization [employer] Address [address] [place] [address] Care Team Providers Care Collar Closer Lockstitch Name Role Phone Tayler Byers MD Primary Care Provider [phone] Reason for Visit * Reason Comments Med Refill Encounter Details Date Type Department Care Team ([facility] st Contact Info) Description 05/18/2024 Refill [facility] [address] [place], [place] [phone] Tayler Byers MD [address] [place], [place] [phone] Social History Tobacco Use Types Packs/Day Years [...] documented as of this encounter Care Teams Collar Closer Lockstitch Relationship Specialty Start Date End Date Tayler Byers MD [address] [place] [address] PCP - General Family Medicine 03/19/20 documented as of this encounter
--- OUTSIDE RECORDS SUMMARY | 2024-06-09 17:55 | XMS_ITS | Encounter Summary ---
Author Organization [employer] Address [address] [place] [address] Care Team Providers Care Glass Embosser Name Role Phone Tayler Byers MD Primary Care Provider [phone] Reason for Visit * Reason Comments Med Change Request Encounter Details Date Type Department Care Team ([facility] Contact Info) Description 12/10/2023 Refill [facility] [address] [place] [address] Shirley Jacobs MD [address] [place] [address] Social History Tobacco Use Types Packs/Day Years Used Date Smoking Tobacco: Never Smokeless Tobacco: Current Comments:vape Alcohol Use Standard Drinks/Week Comments Never 0 (1 standard drink = 0.6 oz pur e alcohol) Depression Answer Date Recorded Patient Health Questionnaire-9 Score 9 04/23/2023 Patient Health Questionnaire-9 Score 9 04/23/2023 Last PHQ-9: Questionnaire Data Not on file 1 06/24/2022 Depression Answer Date Recorded Patient Health Questionnaire-2 Score 0 04/23/2023 Comments Unknown Sex and Gender Information Value [...] documented as of this encounter Care Teams Glass Embosser Relationship Specialty Start Date End Date Tayler Byers MD [address] [place] [address] PCP - General Family Medicine 03/19/20 documented as of this encounter
--- OUTSIDE RECORDS SUMMARY | 2024-06-09 17:55 | XMS_ITS | Encounter Summary ---
Author Organization [employer] Address [address]t [place] [address] Care Team Providers Care Supervisor Microfilm Duplicating Unit Name Role Phone Tayler Byers MD Primary Care Provider [phone] Reason for Visit * Reason Comments Recovery Supports Encounter Details Date Type Department Care Team ([facility] st Contact Info) Description 05/30/2024 Patient Outreach [facility] [address] [place] [address] Ck Alaniz Recovery Supports Social History Tobacco [...] encounter Progress Notes * Ck Alaniz - 05/30/2024 10:29 AM EST I met with Liliam today. Setting: in person at [facility] Recovery Wellness Goals worked on: Personal/Professional Development (Education/Employment) and Social Stability Action taken/next steps: Enrolled in educational courses and Offered person centered recovery support Additional comments: Yesterday, I received the books for the power and recovery shift engineer training to distribute to the CRS participants. Ck Alaniz documented in this encounter Plan of Treatment Not on file documented as of this encounter Visit Diagnoses Not on filedocumented in this encounter Additional Health Concerns Assessment Noted Time PHQ-9 Depression Total Score: 0 04/24/20 24 12:05 PM EST documented as of this encounter Care Teams Supervisor Microfilm Duplicating Unit Relationship Specialty Start Date End Date Tayler Byers MD [address] [place] [address] PCP - General Family Medicine 03/19/20 documented as of this encounter
--- OUTSIDE RECORDS SUMMARY | 2024-06-09 17:55 | XMS_ITS | Encounter Summary ---
Author Organization [employer] Address [address] [facility] 7t [place] [address] Care Team Providers Care Email Operations Manager Name Role Phone Tayler Byers MD Primary Care Provider [phone] Reason for Visit * Reason Comments Med Change Request Encounter Details Date Type Department Care Team ([facility] Contact Info) Description 05/11/2023 Refill [facility] [address] [place], [place] [phone] Tayler Byers MD [address] [place] [address] Social History Tobacco Use Types Packs/Day Years [...] encounter Miscellaneous Notes * Telephone Encounter - Tayler Byers MD - 05/11/2023 2:04 PM EST Redid prescription in my note documented in this encounter Plan of Treatment Not on file documented as of this encounter Visit Diagnoses Not on filedocumented in this encounter Additional Health Concerns Assessment Noted Time PHQ-9 Depression Total Score: 9 04/23/20 23 9:17 AM EST documented as of this encounter Care Teams Email Operations Manager Relationship Specialty Start Date End Date Tayler Byers MD [address] [place] [address] PCP - General Family Medicine 03/19/20 documented as of this encounter
--- OUTSIDE RECORDS SUMMARY | 2024-06-09 17:55 | XMS_ITS | Encounter Summary ---
Author Organization [employer] Address [address] [place] [address] Care Team Providers Care Proof Tester Name Role Phone Tayler Byers MD Primary Care Provider [phone] Encounter Details Date Type Department Care Team (Latest Contact Info) Description 06/09/2024 Travel Social History Tobacco Use Types Packs/Day Years [...] documented as of this encounter Care Teams Proof Tester Relationship Specialty Start Date End Date Tayler Byers MD [address] [place] [address] PCP - General Family Medicine 03/19/20 documented as of this encounter
--- OUTSIDE RECORDS SUMMARY | 2024-06-09 17:55 | XMS_ITS | Encounter Summary ---
Author Organization [employer] Address [address] [place] [address] Care Team Providers Care Stem Assembler Name Role Phone Tayler Byers MD Primary Care Provider [phone] Reason for Visit * Reason Comments Recovery Supports Encounter Details Date Type Department Care Team ([facility] st Contact Info) Description 05/19/2024 Patient Outreach [facility] [address] [place] [address] Ck Alaniz Recovery Supports Social History Tobacco [...] encounter Progress Notes * Ck Alaniz - 05/19/2024 1:55 PM EST I met with Liliam today. Setting: by phone Recovery Wellness Goals worked on: Social Stability Action taken/next steps: Enrolled in educational courses, Facilitated access to technology resources (computer support), andOffered person centered recovery support Additional comments: I called Liliam to remind her to complete the scholarship application for financial assistance to pay for the monomer recovery supervisor training. Ck Alaniz documented in this encounter Plan of Treatment Not on file documented as of this encounter Visit Diagnoses Not on filedocumented in this encounter Additional Health Concerns Assessment Noted Time PHQ-9 Depression Total Score: 0 04/24/20 24 12:05 PM EST documented as of this encounter Care Teams Stem Assembler Relationship Specialty Start Date End Date Tayler Byers MD [address] [place] [address] PCP - General Family Medicine 03/19/20 documented as of this encounter
--- OUTSIDE RECORDS SUMMARY | 2024-06-09 17:55 | XMS_ITS | Encounter Summary ---
Author Organization [employer] Address [address] [place] [address] Care Team Providers Care Oil Pipe Inspector Name Role Phone Tayler Byers MD Primary Care Provider [phone] Reason for Visit * Reason Comments Med Change Request Encounter Details Date Type Department Care Team ([facility] [address] Contact Info) Description 06/09/2024 Refill [facility] [address] [place], [place] [phone] Tayler Byers MD [address] [place], [place] [phone] Acne vulgaris Social History Tobacco Use Types Packs/Day Years [...] as of this encounter Visit Diagnoses Diagnosis Acne vulgaris Other acne documented in this encounter Additional Health Concerns Assessment Noted Time PHQ-9 Depression Total Score: 0 04/24/20 24 12:05 PM EST documented as of this encounter Care Teams Oil Pipe Inspector Relationship Specialty Start Date End Date Tayler Byers MD [address] [place] [address] PCP - General Family Medicine 03/19/20 documented as of this encounter
[2024-06-10 09:38] LABS: Bacterial Vaginosis PCR POSITIVE (Negative); Candida Group PCR NOT DETECTED (Not Detect); Candida glab krusei PCR DETECTED (Not Detect); Trichomonas vaginalis PCR NOT DETECTED (Not Detect)
== END 2024-06-09 17:53 | disposition home or self-care (01) ==
LOC: HO.HHCLNP 17:52
PROVIDERS: Visit Provider General Practice
DX: Z12.4 Encounter for screening for malignant neoplasm of cervix (principal)
CPT/HCPCS: 81515; 87626; 88175

== ENCOUNTER 2024-07-16 11:55 | Outpatient (REF) | payer MEDICAID, SELFPAY ==
--- OUTSIDE RECORDS SUMMARY | 2024-07-16 14:00 | XMS_ITS | Encounter Summary ---
Author Organization [employer] [facility] Address [address] [place] [address] 7 [place] [address] Care Team Providers Care Muck Hauler Name Role Phone Tayler Byers MD Primary Care Provider [phone] Encounter Details Date Type Department Care Team (Late st Contact Info) Description 03/22/2022 Abstract [facility]INE [address] [place] [address] ProviderDagmar MD Social History Tobacco Use Types Packs/Day Years Used Date Smoking Tobacco: Never Assessed Comments Unknown Sex and Gender Information Value Date Recorded Sex Assigned at Female 03/06/2022 10:34 AM EDT Legal Sex Female 10:34 AM EDT Gender Identity Female 03/06/2022 10:34 AM EDT Sexual Orientation Bisexual 03/06/2022 10 :34 AM EDT documented as of this encounter Plan of Treatment Upcoming Encounters Date Type Department Care Team (Late st Contact Info) Description 08/08/2024 2:30 PM EDT Office Visit [facility]ETRY [address] [place] [address] Jeanie Johns, OD [address] [place] [address] documented as of this encounter Visit Diagnoses Not on filedocumented in this encounter Care Teams Muck Hauler Relationship Specialty Start Date End Date Tayler Byers MD [address] [place] [address] PCP - General Family Medicine 03/19/20 documented as of this encounter
--- OUTSIDE RECORDS SUMMARY | 2024-07-16 14:00 | XMS_ITS | Encounter Summary ---
Author Organization [employer] Address [address] [place] [address] Care Team Providers Care Milk Pickup Truck Driver Name Role Phone Tayler Byers MD Primary Care Provider [phone] Reason for Visit * Reason Comments Med Change Request Encounter Details Date Type Department Care Team ([facility] Contact Info) Description 06/09/2024 Refill [facility] [address] [place], [place] [phone] Tayler Byers MD [address] [place], [place] [phone] Acne vulgaris Social History Tobacco Use Types [...] encounter Miscellaneous Notes * Telephone Encounter - Aparna Mao - 07/02/2024 11:58 AM EST PA for Retin-A from [employer] placed on PCP desk for signature. documented in this encounter Plan of Treatment Upcoming Encounters Date Type Department Care Team (Late st Contact Info) Description 08/08/2024 2:30 PM EDT Office Visit [facility] OPTOMETRY [address] [place] [address] Tarchilango Jeanie, OD [address] [place] [address] documented as of this encounter Visit Diagnoses Diagnosis Acne vulgaris Other acne documented in this encounter Additional Health Concerns Assessment Noted Time PHQ-9 Depression Total Score: 0 04/24/20 24 12:05 PM EST documented as of this encounter Care Teams Milk Pickup Truck Driver Relationship Specialty Start Date End Date Tayler Byers MD [address] [place] [address] PCP - General Family Medicine 03/19/20 documented as of this encounter
--- OUTSIDE RECORDS SUMMARY | 2024-07-16 14:00 | XMS_ITS | Encounter Summary ---
Author Organization [employer] Address [address] 7[address] [place] [address] Care Team Providers Care Ict Trainer Name Role Phone Tayler Byers MD Primary Care Provider [phone] Encounter Details Date Type Department Care Team (Latest Contact Info) Description 07/01/2024 Travel Social History Tobacco Use Types Packs/Day [...] Description 08/08/2024 2:30 PM EDT Office Visit [facility] OPTOMETRY [address] [place], [place] [phone] Jeanie Johns, OD [address] [place] [address] documented as of this encounter Visit Diagnoses Not on filedocumented in this encounter Additional Health Concerns Assessment Noted Time PHQ-9 Depression Total Score: 0 04/24/20 24 12:05 PM EST documented as of this encounter Care Teams Ict Trainer Relationship Specialty Start Date End Date Tayler Byers MD [address] [place] [address] PCP - General Family Medicine 03/19/20 documented as of this encounter
--- OUTSIDE RECORDS SUMMARY | 2024-07-16 14:00 | XMS_ITS | Encounter Summary ---
Author Organization [employer] Address [address] [facility] [address] [place] [address] Care Team Providers Care Copra Sampler Name Role Phone Tayler Byers MD Primary Care Provider [phone] Reason for Visit * Reason Comments Procedure Encounter Details Date Type Department Care Team (Latest Contact Info) Description 07/01/2024 9:15 AM EST Procedure Visit [facility] [address] [place], [place] [phone] Tayler Byers MD [address] [place], [place] [phone] Skin tag (Primary Dx); Acne vulgaris; Impaired concentration Social History Tobacco Use Types Packs/Day Years [...] Sign Reading Time Taken Comments Blood Pressure 110/69 07/01/2024 9:51 AM EST Pulse 89 07/01/2024 9:51 AM EST Temperature 36.1 ??C (97 ??F) 07/01/2024 9:51 AM EST Respiratory Rate 17 07/01/2024 9:51 AM EST Oxygen Saturation 98% 07/01/2024 9:51 AM EST Inhaled Oxygen Concentration - - Weight 77.6 kg (171 lb) 07/01/2024 9:51 AM EST Height 154.9 cm (5' 1 ) 07/01/2024 9:51 AM EST Body Mass Index 32.31 07/01/2024 9:51 AM EST documented in this encounter Progress Notes * Tayler Byers MD - 07/01/2024 9:15 AM ESTAssociated Order(s): Shave removal Post-Procedure Diagnose(s): Skin tag SUBJECTIVE: Liliam Colon is a 39 y.o. year old female who presents for procedure and ADHD questions . Denies recent illness, ER visit, or hospitalization. Acute Concerns: Shave removal Date/Time: 07/01/2024 10:30 AM Performed by: Tayler Byers MD Authorized by: Tayler Byers MD Consent: Consent obtained: Written Consent given by: Patient Risks, benefits, and alternatives were discussed: yes Risks discussed: Bleeding, infection and poor cosmetic result Alternatives discussed: No treatment [place] protocol: Procedure explained and questions answered to patient or proxy's satisfaction: yes Relevant documents present and verified: yes Patient identity confirmed: Verbally with patient Number of Lesions: 2 Lesion 1: Body area: trunk Trunk location: back Initial size (mm): 8 Final defect size (mm): 10 Malignancy: malignancy unknown Destruction method: curettage Lesion 2: Body area: trunk Trunk location: back Initial size (mm): 8 Final defect size (mm): 10 Malignancy: malignancy unknown Destruction method: curettage Comments: Nodular flesh colored papules present x 14 year, slowly enlarging over time. Painful at times. Patient tolerated infiltration of xylocaine for anesthesia and removal well. Interim Updates: Taking classes for recovery coaching, is having trouble concentrating on the material, diagnosed with ADHD by someone at her school. Would like to try Tenex. Already taking Wellbutrin for depression. Patient Active Problem List Diagnosis Acne Bipolar I disorder (CMS/HCC) Cannabis abuse Mild depressive disorder Moderate anxiety Opioid use, unspecified, uncomplicated Subclinical hypothyroidism Encounter for screening mammogram for malignant neoplasm of breast Low back pain at multiple sites History reviewed. No pertinent surgical history. No family history on file. Social History Social History Narrative Not on file Review of Systems Constitutional: Negative. Skin: Positive for rash. Psychiatric/Behavioral: Positive for decreased concentration. OBJECTIVE: Vitals: 07/01/24 0951 BP: 110/69 BP Location: Right arm Patient Position: Sitting BP Cuff Size: Adult Pulse: 89 Resp: 17 Temp: 97 ??F (36.1 ??C) TempSrc: Temporal SpO2: 98% Weight: 171 lb (77.6 kg) Height: 5' 1 (1.549 m) Physical Exam Vitals and nursing note reviewed. Constitutional: Appearance: Normal appearance. HENT: Head: Normocephalic and atraumatic. Skin: General: Skin is warm and dry. Findings: Lesion present. Comments: Lesions removed from her L upper back Neurological: General: No focal deficit present. Mental Status: She is alert and oriented to person, place, and time. Psychiatric: Mood and Affect: Mood normal. Behavior: Behavior normal. ASSESSMENT/PLAN Problem List Items Addressed This Visit Acne Relevant Medications tretinoin (Retin-A) 0.025 % cream Other Visit Diagnoses Skin tag - Primary Relevant Medications lidocaine (Xylocaine) 2 % injection 20 mg Follow Up: 4 months or sooner prn No Known Allergies Current Outpatient Medications: acetaminophen (Tylenol) 500 MG tablet, Take 1 tablet (500 mg) by mouth every 6 (six) hours if needed for moderate pain., Disp: 40 tablet, Rfl: 1 Ascorbic Acid (vitamin C) 250 MG tablet, Take 1 tablet (250 mg) by mouth Once per day., Disp: 90 tablet, Rfl: 3 buPROPion (Wellbutrin) 75 MG tablet, Take 1 tablet (75 mg) by mouth 2 times daily., Disp: 180 tablet, Rfl: 3 busPIRone (Buspar) 15 MG tablet, Take 1 tablet (15 mg) by mouth every 8 (eight) hours., Disp: 270 tablet, Rfl: 3 cetirizine (ZyrTEC) 10 MG tablet, Take 1 tablet (10 mg) by mouth Once per day., Disp: 90 tablet, Rfl: 3 clindamycin (Clindagel) 1 % gel, Apply topically Once per day. After washing face with noxema, Disp: 60 g, Rfl: 2 fluticasone (Flonase) 50 MCG/ACT nasal spray, ADMINISTER 2 SPRAYS INTO EACH NOSTRIL ONCE PER DAY. SHAKE GENTLY. BEFORE FIRST USE, PRIME PUMP. AFTER USE, CLEAN TIP AND REPLACE CAP, Disp: 48 mL, Rfl: 0 ibuprofen 400 MG tablet, Take 1 tablet (400 mg) by mouth every 6 (six) hours if needed for moderatepain or fever for up to 90 doses., Disp: 90 tablet, Rfl: 0 lamoTRIgine (LaMICtal) 200 MG tablet, Take 1 tablet (200 mg) by mouth in the morning., Disp: 90 tablet, Rfl: 3 lidocaine (Lidoderm) [...] AT BEDTIME, Disp: 270 tablet, Rfl: 3 spironolactone (Aldactone) 100 MG tablet, Take 1 tablet (100 mg) by mouth Once per day., Disp: 90 tablet, Rfl: 3 tretinoin (Retin-A) 0.025 % cream, Apply topically at bedtime., Disp: 45 g, Rfl: 2 Current Facility-Administered Medications: lidocaine (Xylocaine) 2 % injection 20 mg, 1 mL, Injection, Once, Tayler Byers MD Paraguayan Translation: Patient is bilingual and declines translation services documented in this encounter Plan of Treatment Upcoming Encounters Date Type Department Care Team (Late st Contact Info) Description 08/08/2024 2:30 PM EDT Office Visit [facility] OPT[facility]RY [address] [place], [place] [phone] TarJeanie kee, OD [address] [place] [address] documented as of this encounter Procedures Procedure Name Priority Date/Time Associated Diagnosis Comments EPIDERMAL / DERMAL SHAVING Routine 07/01/2024 10:30 AM EST Skin tag documented in this encounter Results * Shave removal (07/01/2024 10:30 AM EST) Narrative Tayler Byers MD - 07/01/2024 10:30 AM EST Tayler Byers MD ? 07/01/2024 10:43 AM Shave removal Date/Time: 07/01/2024 10:30 AM Performed by: Tayler Byers MD Authorized by: Tayler Byers MD ?? Consent: ??Consent obtained: ??Written ??Consent given by: ??Patient ??Risks, benefits, and alternatives were discussed: yes ?Risks discussed: ??Bleeding, infection and poor cosmetic result ??Alternatives discussed: ??No treatment [place] protocol: ??Procedure explained and questions answered to patient or proxy's satisfaction: yes ?Relevant documents present and verified: yes ?Patient identity confirmed: ??Verbally with patient Number of Lesions: 2 Lesion 1: ??Body area: trunk ??Trunk location: back ??Initial size (mm): 8 ??Final defect size (mm): 10 ??Malignancy: malignancy unknown ?Destruction method: curettage ?? Lesion 2: ??Body area: trunk ??Trunk location: back ??Initial size (mm): 8 ??Final defect size (mm): 10 ??Malignancy: malignancy unknown ?Destruction method: curettage ?? Comments: Nodular flesh colored papules present x 14 year, slowly enlarging over time. ??Painful at times. ??Patient tolerated infiltration of xylocaine for anesthesia and removal well. Tayler Byers MD DERM PROCEDURE ORDERABLES Nidia l Result documented in this encounter Visit Diagnoses Diagnosis Skin tag- Primary Unspecified hypertrophic and atrophic condition of skin Acne vulgaris Other acne Impaired concentration documented in this encounter Administered Medications Inactive Administered Medications - up to 3 most recent administrations Medication Order MAR Action Action Date Dose Rate Site lidocaine (Xylocaine) 2 % injection 20 mg 20 mg (1 mL), Injection, Once, On Sun07/01/24 at 1030, For 1 doseIndications:Skin tag Given 07/01/2024 10:30 AM EST 20 mg documented in this encounter Additional Health Concerns Assessment Noted Time PHQ-9 Depression Total Score: 0 04/24/20 24 12:05 PM EST documented as of this encounter Care Teams Copra Sampler Relationship Specialty Start Date End Date Tayler Byers MD [address] [place] [address] PCP - General Family Medicine 03/19/20 documented as of this encounter
--- OUTSIDE RECORDS SUMMARY | 2024-07-16 14:00 | XMS_ITS | Encounter Summary ---
Author Organization [employer] Address [address] [facility] [address] [place] [address] Care Team Providers Care Hospice Superintendent Name Role Phone Tayler Byers MD Primary Care Provider [phone] Reason for Visit * Reason Onset Date Comments Results 06/18/2024 Encounter Details Date Type Department Care Team ([facility] Contact Info) Description 06/18/2024 Telephone [facility] MED[facility] [address] [place], [place] [phone] Cassandra Da Silva, MARTIN [address] [place] [address] Results Social History Tobacco Use Types Packs/Day Years [...] encounter Miscellaneous Notes * Telephone Encounter - Cassandra Da Silva RN - 06/19/2024 9:19 AM EST TC x2 placed to patient [phone] to inform of below message. Patient verbalized understanding and reports she is currently asymptomatic in regards to BV. Patient does not want tx at this time. Patient advised if she develops any s/s to return call to [facility]. Patient to f/u PRN. ----- Message from Tayler Byers MD sent at 06/17/2024 2:38 PM EST ----- Please let patient know normal cells and no HPV, can repeat in 5 years. Does she want treatment forBV, having any symptoms? Please update chart and pap tracker as well. Thank you! * Telephone Encounter - Cassandra Da Silva RN - 06/18/2024 8:43 AM EST TC placed to patient [phone] however no answer, RN left VM requesting CB to red team nurses. TC placed to [phone] however the number you dialed has been changed, disconnected or no longer in service . RN will re-attempt in PM. ----- Message from Tayler Byers MD sent at 06/17/2024 2:38 PM EST ----- Please let patient know normal cells and no HPV, can repeat in 5 years. Does she want treatment forBV, having any symptoms? Please update chart and pap tracker as well. Thank you! documented in this encounter Plan of Treatment Upcoming Encounters Date Type Department Care Team (Late st Contact Info) Description 08/08/2024 2:30 PM EDT Office Visit [facility] OPTOMETRY [address] [place] [address] Jeanie Johns, OD [address] [place] [address] documented as of this encounter Visit Diagnoses Not on filedocumented in this encounter Additional Health Concerns Assessment Noted Time PHQ-9 Depression Total Score: 0 04/24/20 24 12:05 PM EST documented as of this encounter Care Teams Hospice Superintendent Relationship Specialty Start Date End Date Tayler Byers MD [address] [place] [address] PCP - General Family Medicine 03/19/20 documented as of this encounter
--- OUTSIDE RECORDS SUMMARY | 2024-07-16 14:00 | XMS_ITS | Encounter Summary ---
Author Organization [employer] Address [address] [facility] [address] [place] [address] Care Team Providers Care Machine Heddle Cleaner Name Role Phone Tayler Byers MD Primary Care Provider [phone] Reason for Visit * Reason Comments Med Change Request Encounter Details Date Type Department Care Team (Late st Contact Info) Description 12/10/2023 Refill [facility] [address] [place] [address] Shirley Jacobs MD [address] [place] [address] Social History Tobacco Use Types Packs/Day Years [...] Description 08/08/2024 2:30 PM EDT Office Visit [facility] OPTOMETRY [address] [place] [address] Andreas Jeanie, OD [address] [place] [address] documented as of this encounter Visit Diagnoses Not on filedocumented in this encounter Additional Health Concerns Assessment Noted Time PHQ-9 Depression Total Score: 9 04/23/20 23 9:17 AM EST documented as of this encounter Care Teams Machine Heddle Cleaner Relationship Specialty Start Date End Date Tayler Byers MD [address] [place] [address] PCP - General Family Medicine 03/19/20 documented as of this encounter
--- OUTSIDE RECORDS SUMMARY | 2024-07-16 14:00 | XMS_ITS | Encounter Summary ---
Author Organization [employer] Address [address] [facility] [address] [place] [address] Care Team Providers Care Safety Sitter Name Role Phone Tayler Byers MD Primary Care Provider [phone] Reason for Visit * Reason Comments Med Change Request Encounter Details Date Type Department Care Team ([facility] Contact Info) Description 05/11/2023 Refill [facility] MED[facility]INE [address] [place], [place] [phone] Tayler Byers MD [address] [place] [address] Social History Tobacco Use Types Packs/Day Years [...] Description 08/08/2024 2:30 PM EDT Office Visit [facility] [address] [place] [address] Tarchilango Jeanie, OD [address] [place] [address] documented as of this encounter Visit Diagnoses Not on filedocumented in this encounter Additional Health Concerns Assessment Noted Time PHQ-9 Depression Total Score: 9 04/23/20 23 9:17 AM EST documented as of this encounter Care Teams Safety Sitter Relationship Specialty Start Date End Date Tayler Byers MD [address] [place] [address] PCP - General Family Medicine 03/19/20 documented as of this encounter
--- OUTSIDE RECORDS SUMMARY | 2024-07-16 14:00 | XMS_ITS | Encounter Summary ---
Author Organization [employer] Address [address] [facility] [address] [place] [address] Care Team Providers Care Manager Of Marketing Name Role Phone Tayler Byers MD Primary Care Provider Reason for Visit * Reason Comments [facility] Encounter Details Date Type Department Care Team ([facility] st Contact Info) Description 07/01/2024 Patient Outreach [facility] MEDICINE [address] [place] [address] Bola Hernández Recovery Supports Social History Tobacco Use Types [...] as of this encounter Progress Notes * Bola Hernández - 07/01/2024 10:35 AM EST I met with Liliam today. Setting: in person at [facility] Recovery Wellness Goals worked on: Social Stability Action taken/next steps: Attended alcohol and drug free activity Additional comments: Today, the participant Liliam Isaiah was at the recovery center. Bola Hernández documented in this encounter Plan of Treatment Upcoming Encounters Date Type Department Care Team (Late st Contact Info) Description 08/08/2024 2:30 PM EDT Office Visit [facility] OPTOMETRY [address] [place] [address] TarJeanie kee, OD [address] [place] [address] documented as of this encounter Visit Diagnoses Not on filedocumented in this encounter Additional Health Concerns Assessment Noted Time PHQ-9 Depression Total Score: 0 04/24/20 24 12:05 PM EST documented as of this encounter Care Teams Manager Of Marketing Relationship Specialty Start Date End Date Tayler Byers MD [address] [place] [address] PCP - General Family Medicine 03/19/20 documented as of this encounter
--- OUTSIDE RECORDS SUMMARY | 2024-07-16 14:00 | XMS_ITS | Clinical Summary ---
Author Organization [employer] Address [address] [place] [address] Care Team Providers Care [address] Justice Name Role Phone Tayler Byers MD Primary Care Provider [phone] Allergies No known active allergies Medications * This document contains information received from the source organization and may not represent a complete record from that organization. Ascorbic Acid (vitamin C) 250 MG tabletIndicati ons:Acne vulgaris Take 1 tablet (250 mg) by mouth Once per day. 90 tablet 3 025 2025 Active QUEtiapine (SEROquel) 100 MG tabletIndicati ons:Bipolar I disorder (CMS/HCC) TAKE 1 TABLET BY MOUTH IN THE MORNING, AND TAKE 2 TABLETS BY MOUTH AT BEDTIME 270 tablet 3 025 Active lidocaine (Lidoderm) 5 % patchIndicatio ns:Low back pain at multiple sites Apply 1 patch topically Once per day. Remove & discard patch within 12 hours or as directed by . 30 patch 2 025 2025 Active cetirizine (ZyrTEC) 10 MG tabletIndicati ons:Allergic rhinitis due to other allergic trigger, unspecified seasonality Take 1 tablet (10 mg) by mouth Once per day. 90 tablet 3 025 2025 Active spironolactone (Aldactone) 100 MG tabletIndicati ons:Acne vulgaris Take 1 tablet (100 mg) by mouth Once per day. 90 tablet 3 025 2025 Active busPIRone (Buspar) 15 MG tabletIndicati ons:Bipolar I disorder (CMS/HCC) Take 1 tablet (15 mg) by mouth every 8 (eight) hours. 270 tablet 3 Active ondansetron (Zofran) 4 MG tablet Take 1 tablet (4 mg) by mouth if needed each day for nausea or vomiting. 20 tablet 025 2025 Active ibuprofen 400 MG tabletIndicati ons:Low back pain at multiple sites Take 1 tablet (400 mg) by mouth every 6 (six) hours if needed for moderate pain or fever for up to 90 doses. 90 tablet 025 Active acetaminophen (Tylenol) 500 MG tabletIndicati ons:Low back pain at multiple sites Take 1 tablet (500 mg) by mouth every 6 (six) hours if needed for moderate pain. 40 tablet 1 Active buPROPion (Wellbutrin) 75 MG tabletIndicati ons:Bipolar I disorder (CMS/HCC) Take 1 tablet (75 mg) by mouth 2 times daily. 180 tablet 3 Active clindamycin (Clindagel) 1 % gelIndications :Acne vulgaris Apply topically Once per day. After washing face with noxema 60 g 2 025 2025 Active lamoTRIgine (LaMICtal) 200 MG tabletIndicati ons:Bipolar I disorder (CMS/HCC) Take 1 tablet (200 mg) by mouth in the morning. 90 tablet 3 Active fluticasone (Flonase) 50 MCG/ACT nasal spray ADMINISTER 2 SPRAYS INTO EACH NOSTRIL ONCE PER DAY. SHAKE GENTLY. BEFORE FIRST USE, PRIME PUMP. AFTER USE, CLEAN TIP AND REPLACE CAP 48 mL Active tretinoin (Retin-A) 0.025 % creamIndicatio ns:Acne vulgaris Apply topically at bedtime. 45 g 2 025 2025 Active guanFACINE (Tenex) 1 MG tablet Take 1 tablet (1 mg) by mouth at bedtime. For concentration 90 tablet 1 025 2024 Active fluticasone (Flonase) 50 MCG/ACT nasal spray ADMINISTER 2 SPRAYS INTO EACH NOSTRIL ONCE PER DAY. SHAKE GENTLY. BEFORE FIRST USE, PRIME PUMP. AFTER USE, CLEAN TIP AND REPLACE CAP 48 mL 12/19/2 024 2024 Discontinued(R eorder (will not trigger notification to Pharmacy)) tretinoin (Retin-A) 0.025 % creamIndicatio ns:Acne vulgaris Apply topically at bedtime. 45 g 2 025 2024 Discontinued(T herapy completed) ofloxacin (Floxin) 0.3 % otic solution PUT 10 DROPS INTO THE EAR(S) DAILY FOR 7 DAYS 024 2024 Discontinued(T herapy completed) Hospital, Clinic, or Other Facility Administered Medication Ordered Dose Route Frequency Start Date End Date Status lidocaine (Xylocaine) 2 % injection 20 mgIndications:Skin tag 20 mg IJ Once 07/01/2024 Active lidocaine (Xylocaine) 2 % injection 20 mgIndications:Skin tag 20 mg IJ Once 07/01/2024 07/01/2024 Discontinued Active Problems Problem Noted Date Diagnosed Date Skin tag 07/01/2024 Subclinical hypothyroidism 05/11/2023 Encounter for screening mamm [...] Anxiety and Depression after [facility]. Adjusting to the community. During IBH Consult Liliam presenting with changes in sleep difficulty falling asleep, trouble concentrating, thoughts of worthlessness or guilt, fatigue/loss of energy, excessive worry/anxiety, difficulty controlling worry, restless/keyed up/On edge, easily fatigued, sleep disturbance difficulty falling asleep, and diminished ability to relax, and Hx of opioid abuse, currently has [facility], denies cravings, denies any other illicit drugs, will start services at [facility] for suboxone, in regard to Opioids; for a period of 18+ mo, for all symptoms in the context of recently released from [facility] recently, currently on parole and probation, needing anger management classes, provided with Kyle brochure for her to follow up and request information. PLAN: New/Additional Services needed Off-site services for , Behavioral Health Integration Plan External OP therapy referral and OP psychiatry Referral, Patient Self Plan Patient to utilize skills provided in intervention , Patient to reach out to [facility] team as needed, and Comply with medication prescribed by [facility] provider ( buspar 15mg, lamitical 20mg, seroquel 100mg and welbutrin 75mg). Encounters Date Type Department Care Team Description 07/01/2024 9:15 AM EST Procedure Visit [address] [address] Tayler Byers MD Skin tag (Primary Dx); Acne vulgaris; Impaired concentration 07/01/2024 Patient Outreach [address] [address] Bola Hernández Recovery Supports 07/01/2024 Travel 06/18/[address] [address] Cassandra Da Silva, RN Results 06/10/2024 Telephone [facility] [address] [place] [phone] Cheryl Larios, MARTIN Results 06/10/2024 Telephone [facility] [address] [place] [phone] Cheryl Larios, MARTIN Results 06/09/2024 3:45 PM EST Procedure Visit [facility] [place] [address] Tayler Byers MD Screening for cervical cancer [...] other allergic trigger, unspecified seasonality 06/09/2024 Refill [facility] [place] [address] Tayler Byers MD Acne vulgaris 06/09/2024 Travel 05/30/2024 Patient Outreach [facility] [place] [address] Ck Alaniz Recovery Supports 05/20/2024 Patient Outreach [facility] [place] [address] Ck Alaniz Recovery Supports 05/19/2024 Patient Outreach [facility] [place] [address] Ck Alaniz Recovery Supports 05/18/2024 Refill [facility] [place] [address] Tayler Byers MD 05/15/2024 Refill [facility] [place] [address] Tayler Byers MD 05/08/2024 Telephone [facility] [place] [address] Tayler Byers MD Medication Question 04/24/2024 11:45 AM EST Office Visit [facility] [place] [address] Kimberly Begum DO Decreased visual acuity (Primary Dx) 04/24/2024 Patient Outreach [facility] [place] [address] Ck Alaniz 04/24/2024 Refill [facility] [place] [address] Tayler Byers MD 04/23/2024 Patient Outreach [facility] [address] [place] [address] Ck Alaniz Recovery Supports from Last 3 Months Immunizations Name Administration [...] Mass Index 32.31 07/01/2024 9:51 AM EST Plan of Treatment Upcoming Encounters Date Type Department Care Team (Late st Contact Info) Description 08/08/2024 2:30 PM EDT Office Visit [facility] OPTOMETRY [address] [place] [address] Jeanie Johns, OD [address] [place] [address] Health Maintenance Due Date Last Done Comments Hepatitis B Vaccines (1 of 3 - 19+ 3-dose series) 2002 DTaP/Tdap/Td Vaccines (1 - Tdap) 10/14/2017 10/13/2017 Mammogram 2023 COVID-19 Vaccine (1 - 2023-2 5 season) 2024 Influenza Vaccine (#1) 2024 Alcohol/Substance Use Screening 04/24/2025 04/24/2024 Depression Screening 04/24/2025 04/24/2024, 04/24/2024 SDOH Screening 04/24/2025 04/24/2024 Family Planning (PISQ) 06/10/2025 06/10/2024 Tobacco Screening 07/01/2025 07/01/2024 Lipid Panel 07/08/2026 07/08/2021 HPV/Cotest 08/05/2026 08/05/2021 Cervical Cancer Screening 06/09/2029 Pap Smear 06/09/2029 06/09/2024, 08/05/2021 Zoster Vaccines (1 of 2) 2033 RSV Patients and Patients Aged 60 years or older (1 - 1-dose 75+ series) 2058 HIV Screening Completed 07/08/2021 Hepatitis C Screening Completed 07/08/2021 Hepatitis A Vaccines Aged Out 05/29/2022, 02/25/2021 No longer eligible based on patient's age to complete this topic HIB Vaccines Aged Out No longer eligi [...] Routine 07/01/2024 10:30 AM EST Skin tag BACTERIAL VAGINOSIS PANEL Routine 06/09/2024 4:33 PM EST Screening for cervical cancer PAP SMEAR Routine 06/09/2024 12:00 AM EST HPV MRNA E6/E7 REFLEX TO HPV 16, 18/45 Routine 08/05/2021 12:00 AM EDT ZZZ HISTORICAL HEPATITIS C AB W/REFL TO HCV RNA, QN, PCR Routine 07/08/2021 11:21 AM EST HIV 1/2 ANTIGEN/ANTIBODY, FOURTH GENERATION W/RFL Routine 07/08/2021 11:21 AM EST LIPID PANEL, STANDARD Routine 07/08/2021 11:21 AM EST from Last 3 Months or Most Recently Relevant to Health Maintenance Results * Shave removal (07/01/2024 10:30 AM [...] poor cosmetic result ??Alternatives discussed: ??No treatment [place] protocol: ??Procedure explained and questions answered to [...] of xylocaine for anesthesia and removal well. us Tayler Byers MD DERM PROCEDURE ORDERABLES Nidia l Result * (ABNORMAL) Bacterial Vaginosis (06/09/2024 4:33 PM EST) TRICHOMONAS VAGINALIS DETECTION BY PCR NOT DETECTED Not Detect [facility] BACTERIAL VAGINOSIS DETECTION BY PCR POSITIVE(A) Negative [facility] Comment:The BV organism targ ets of the Xpert Xpress MVP test can becommensal in women; Xpert Xpress MVP positive results forbacterial vaginosis should be considered in conjunction withother clinical and patient information to determine thedisease status. Organisms that are not detected by the XpertXpress MVP test have also been reported to be associatedwith BV and aerobic vaginitis.The Xpert Xpress MVP test performance has not been evaluatedin patients under the age of 14. DARI GROUP DETECTION BY PCR NOT DETECTED Not Detect [facility] Dari glab krusei PCR DETECTED(A) Not Detect [facility] Swab Vaginal structure / Unknown 06/09/2024 4:33 PM EST 06/09/2024 5:53 PM EST us Tayler Byers MD LAB MICROBIOLOGY - GENERAL ORD ERABLES Final Result [facility] [address] [place] [phone] * Pap Smear (06/09/2024 12:00 AM EST) 06/09/2024 06/10/2024 9:1 0 AM EST Narrative [facility] - 06/17/2024 12:31 PM EST ----- ------- Name: Liliam Colon ? Age/Sex: 39/F ? : 1985 Unit#: [id number] ?? Attend Dr: Tayler Byers ?Re06/09/24 ?Status: DEP REF ? Location: HO.HHNP ? Disch: ? ----- ------- SPEC : [id number] ? RECD: 06/10/24 ? STATUS: ??SOUT ? REQ NUM: [id number] ? SHANON: 06/09/24 ? SUBM DR: Tayler Byers ? ENTERED: ??06/10/24 ?SP TYPE: Pap Smr ?OTHR DR: ? ORDERED: ??Pap Smear ? Interpretation ?? Satisfactory for evaluation. ?? Negative for intraepithelial lesion or malignancy. ?? Coccobacilli consistent with shift in vaginal cheli. ? HPV High Risk: ??Negative ? HPV Genotyping 16: ??Negative ?? HPV Genotyping 18: ??Negative ?Clinical Information LMP: Previous PAP test: ASCUS Other surgery: Other history: ? Material Received ?? ThinPrep-Cervical ----- ------- Signed (signature on file) Darvin DAVON Ulloa (ASCP) 06/17/24 1231 ? ----- ------- ? END OF REPORT ? Tayler Byers MD LAB CYTOLOGY ORDERABLES Final Result [facility] [address] [place], [place] [phone] * HPV mRNA E6/E7 REFLEX TO HPV 16, 18/45 (08/05/2021 12:00 AM EDT) Pathologist [facility] HPV nRNA E6/E7 Not Detected Not Detected [facility] Comment: Methodology: Incident Coordinator-Mediated Amplification This assay detects E6/E7 viral messenger RNA (mRNA) from 14 high-risk HPV types (16,18,31,33,35,39,45,51,52,56,58,59,66,68). ? The analytical performance characteristics of this assay have been determined by [employer]. The modifications have not been cleared or approved by the FDA. This assay has been validated pursuant to the CLIA regulations and is used for clinical purposes. ?? For additional information, please refer to http://education.CoupOption/faq/KSF412l0 (This link if provided for information/ educational purposes only.) 08/05/2021 Tayler Byers MD LAB CYTOLOGY ORDERABLES Final Result [facility] [address] * HEPATITIS C AB W/REFL TO HCV RNA, QN, PCR (07/08/2021 11:21 AM EST) HEPATITIS C ANTIBODY NON-REACT ELISA NON-REACT ELISA [facility] INDEX 0.02 <1.00 [facility] Comment: ?? HCV antibody was non-reactive. There is no laboratory ?? evidence of HCV infection. ?? In most cases, no further action is required. However, if recent HCV exposure is suspected, a test for HCV RNA (test code 98563) is suggested. ?? For additional information please refer to http://[employer].CoupOption/faq/PEX80l3 (This link is being provided for informational/ educational purposes only.) ?? 07/08/2021 11:2 1 AM EST Tayler Byers MD HISTORICAL/NON ORDERABLE LABS Final Result Performing Organization Address City/[facility]/ZIP Co de Phone Number [facility] [address] * HIV 1/2 ANTIGEN/ANTIBODY,FOURTH GENERATION W/RFL (07/08/2021 11:21 AM EST) HIV-1/2 ANTIGEN AND ANTIBODIES, 4TH GENERATION W/ REFLEX NON-REACT ELISA NON-REACT ELISA [facility] Comment: HIV-1 antigen and HIV-1/HIV-2 [...] ? For additional information please refer to http://education.CoupOption/faq/UWQ141 (This link is being provided for informational/ educational purposes only.) ? The performance of this assay has not been clinically validated in patients less than 2 years old. ?? 07/08/2021 11:2 1 AM EST Tayler Byers MD LAB BLOOD ORDERABLES Final Res ult Performing Organization Address [facility] de Phone Number [facility] [address] [place] [address], * LIPID PANEL, STANDARD (07/08/2021 11:21 AM EST) Chol/HDLC Ratio 2.9 <5.0 (calc) [facility] Cholesterol, Total 158 <200 mg/dL [facility] HDL Cholesterol 55 > OR = 50 mg/dL [facility] LDL Cholesterol 80 mg/dL (calc) [facility] Comment: Reference range: <100 ?? [...] ?? Rommel CARBALLO et al. HARVINDER. 2013;310(19): 2923-8001 ?? (http://education.Cruise Compare/faq/ETF055) Non-HDL Cholesterol 103 <130 mg/dL (calc) [facility] Comment: For patients with diabetes plus 1 major ASCVD risk ?? factor, treating to a non-HDL-C goal of <100 mg/dL ?? (LDL-C of <70 mg/dL) is considered a therapeutic ?? option. Triglycerides 131 <150 mg/dL [facility] 07/08/2021 11:2 1 AM EST us Tayler Byers MD LAB BLOOD ORDERABLES Final Res ult Performing Organization Address [facility] Phone Number [facility] [address] [place] [address], from Last 3 Months or Most Recently Relevant to Health Maintenance Insurance * Guarantor: Liliam Colon Account Type Relation to Patient Date of Phone Billing Address Personal/Family Self [address] [place] Care Teams [address] Justice Relationship Specialty Start Date End Date Tayler Byers MD [address] [place] [address] PCP - General Family Medicine 03/19/20
== END 2024-07-16 11:56 | disposition home or self-care (01) ==
LOC: HO.MAMMO 11:55
PROVIDERS: PCP General Practice; Visit Provider General Practice
DX: Z12.31 Encounter for screening mammogram for malignant neoplasm of breast (principal)
CPT/HCPCS: 77063; 77067

== ENCOUNTER → 2024-07-16 12:00 | Outpatient (BNV) | payer MEDICAID, SELFPAY | PROVIDERS: PCP General Practice; Visit Provider Internal Medicine | DX: Z12.31 Encounter for screening mammogram for malignant neoplasm of breast (principal) | CPT/HCPCS: 77063; 77067 ==

== ENCOUNTER 2024-11-26 09:50 | Outpatient (REF) | payer MEDICAID, SELFPAY ==
[2024-11-26 21:07] LABS: CT PCR NOT DETECTED (Not Detect.); NG PCR NOT DETECTED (Not Detect.)
== END 2024-11-26 09:51 | disposition home or self-care (01) ==
LOC: HO.LNP 09:50
PROVIDERS: Visit Provider Advanced Practice Midwife
DX: Z11.3 Encounter for screening for infections with a predominantly sexual mode of transmission (principal)
CPT/HCPCS: 87491; 87591